=== PATIENT | female | born 1980 | race African-American/Black ===

== ENCOUNTER 2017-02-17 08:54 | Emergency (ER) | payer MEDICAID ==
[~2017-02-17] VITALS: Ht 149.9 cm; Wt 87.0 kg
[~2017-02-17 08:54] MED LIST: ENAL20TA PO; HYDR12.529 PO; LEVO50TA8 PO; METF500T4 PO
[2017-02-17] MEDS ORDERED: SODIUM BICARBONATE 4% (2.4MEQ) 5ML VIAL IV ONE (12:40)
[2017-02-17] MEDS ORDERED: LIDOCAINE HCL 1% 20ML VIAL (Pyxis) INJ ONE (12:40)
[2017-02-17 13:05] LABS: INR 1.1; PARTIAL THROMBOPLASTIN TIME 27.7 sec (24.0-34.0); PROTHROMBIN TIME 11.4 sec
[2017-02-17 13:24] LABS: BASOPHILS % 0.7 % (0.0-2.0); DIFFERENTIAL COMMENT 0; EOSINOPHILS % 2.1 % (0.0-5.0); HEMATOCRIT. 45.6 % (36.0-48.0); HEMOGLOBIN. 14.1 g/dL (12.0-16.0); LYMPHOCYTES % 20.4 % (20.0-50.0); MEAN CORPUSCULAR HEMOGLOBIN 25.7 pg (28.0-32.0); MEAN CORPUSCULAR VOLUME 82.9 fL (81.0-99.0); MEAN PLATELET VOLUME 10.5 fl (7.4-10.4); MONOCYTES % 6.6 % (2.0-8.0); NEUTROPHILS % 70.2 % (40.0-76.0); PLATELET 170 x1000/uL (130-400); RED CELL DISTRIBUTION WIDTH 16.4 % (11.6-14.6); WHITE BLOOD COUNT 6.1 x1000/uL (4.5-11.0)
[2017-02-17 14:47] VITALS: BP 125/68
[2017-02-24] MEDS ORDERED: IBUP-1509 PO (10:17)
== END 2017-02-17 14:58 | disposition home or self-care (01) ==
LOC: ER 08:54
DX: R18.8 Other ascites (principal); I10 Essential (primary) hypertension; E11.9 Type 2 diabetes mellitus without complications; E03.9 Hypothyroidism, unspecified; Z85.43 Personal history of malignant neoplasm of ovary
CPT/HCPCS: 36415; 49083; 81025; 85025; 85610; 85730; 99285; J3490; Z7610

== ENCOUNTER 2017-03-13 10:56 | Day surgery (SDC) | payer MEDICAID ==
[~2017-03-13] VITALS: Ht 149.9 cm; Wt 86.2 kg
[~2017-03-13 10:56] MED LIST changes: +IBUP-1509 PO
[2017-03-13] MEDS ORDERED: LACTATED RINGERS 1,000 ML IV SCH (11:00)
[2017-03-13 11:44] LABS: BASOPHILS % 0.6 % (0.0-2.0); HEMATOCRIT. 47.4 % (36.0-48.0); HEMOGLOBIN. 14.6 g/dL (12.0-16.0); LYMPHOCYTES % 13.8 % (20.0-50.0); MEAN CORPUSCULAR HEMOGLOBIN 25.6 pg (28.0-32.0); MEAN CORPUSCULAR VOLUME 82.9 fL (81.0-99.0); MEAN PLATELET VOLUME 10.6 fl (7.4-10.4); MONOCYTES % 6.6 % (2.0-8.0); PLATELET 216 x1000/uL (130-400); RED BLOOD CELL COUNT 5.71 mill/uL (4.2-5.4); RED CELL DISTRIBUTION WIDTH 15.9 % (11.6-14.6)
[2017-03-13 11:46] LABS: CHLORIDE 102 mEq/L (98-107)
[2017-03-13 11:56] LABS: CARBON DIOXIDE 37 mEq/L (21-32)
[2017-03-13 12:00] LABS: INR 1.1; PROTHROMBIN TIME 11.4 sec
[2017-03-13] MEDS ORDERED: SODIUM CHLORIDE 0.9% 1,000 ML IV SCH (12:15)
[2017-03-13] MEDS ORDERED: PROPOFOL 200MG/20ML VIAL IV ONE (12:42)
[2017-03-13] MEDS ORDERED: LIDOCAINE HCL 1% 20ML VIAL (Pyxis) INJ ONE (12:42)
[2017-03-13] MEDS ORDERED: OXYC-100 PO (12:45)
[2017-03-13] MEDS ORDERED: ATOR10TA69 PO (12:46)
[2017-03-13] MEDS ORDERED: MEPERIDINE HCL/PF 25MG/ML CPJ IV PRN (13:00)
[2017-03-13] MEDS ORDERED: LABETALOL HCL 20MG/4ML CARPUJECT IV PRN (13:00)
[2017-03-13] MEDS ORDERED: HYDROMORPHONE HCL/PF 2MG/ML CPJ IV PRN (13:00)
[2017-03-13] MEDS ORDERED: ONDANSETRON HCL 4MG/2ML VIAL IV PRN (13:00)
[2017-03-23] MEDS ORDERED: METO-293 PO (10:18)
== END 2017-03-13 14:55 | disposition home or self-care (01) ==
LOC: OR 10:56
PROVIDERS: ATTEND Internal Medicine Gastroenterology
DX: K29.50 Unspecified chronic gastritis without bleeding (principal); C56.9 Malignant neoplasm of unspecified ovary; E11.9 Type 2 diabetes mellitus without complications; E03.9 Hypothyroidism, unspecified; J44.9 Chronic obstructive pulmonary disease, unspecified; I12.9 Hypertensive chronic kidney disease with stage 1 through stage 4 chronic kidney disease, or unspecified chronic kidney disease; M19.90 Unspecified osteoarthritis, unspecified site; N18.9 Chronic kidney disease, unspecified; E66.01 Morbid (severe) obesity due to excess calories
CPT/HCPCS: 36415; 43239; 80053; 85025; 85610; 85730; 88305; 88312; 88313; 93005; J3490; J7030; J2704

== ENCOUNTER 2017-03-30 10:43 | Emergency (ER) | payer MEDICAID ==
[~2017-03-30] VITALS: Ht 149.9 cm; Wt 87.0 kg
[~2017-03-30 10:43] MED LIST changes: +ATOR10TA69 PO; +LIDOCAINE HCL 1% 20ML VIAL (Pyxis) INJ ONE; +METO-293 PO; +OXYC-100 PO; +SODIUM BICARBONATE 8.4% 1 MEQ/ML 50ML SYR IV ONE
[2017-03-30] MEDS ORDERED: ONDANSETRON HCL 4MG/2ML VIAL IV STA (11:26)
[2017-03-30 11:40] LABS: BASOPHILS % 0.9 % (0.0-2.0); EOSINOPHILS % 3.6 % (0.0-5.0); HEMATOCRIT. 45.8 % (36.0-48.0); HEMOGLOBIN. 14.4 g/dL (12.0-16.0); LYMPHOCYTES % 13.7 % (20.0-50.0); MEAN CORPUSCULAR HEMOGLOBIN 25.7 pg (28.0-32.0); MEAN CORPUSCULAR VOLUME 81.7 fL (81.0-99.0); MEAN PLATELET VOLUME 10.9 fl (7.4-10.4); NEUTROPHILS % 79.8 % (40.0-76.0); PLATELET 136 x1000/uL (130-400); RED BLOOD CELL COUNT 5.61 mill/uL (4.2-5.4); RED CELL DISTRIBUTION WIDTH 14.8 % (11.6-14.6)
[2017-03-30 11:49] LABS: INR 1.1; PROTHROMBIN TIME 11.9 sec
[2017-03-30 11:55] LABS: CARBON DIOXIDE 38 mEq/L (21-32); CHLORIDE 92 mEq/L (98-107)
[2017-03-30 14:23] VITALS: BP 121/87
== END 2017-03-30 15:26 | disposition home or self-care (01) ==
LOC: ER 11:30
DX: R18.8 Other ascites (principal); R11.2 Nausea with vomiting, unspecified; E05.90 Thyrotoxicosis, unspecified without thyrotoxic crisis or storm; J44.9 Chronic obstructive pulmonary disease, unspecified; I10 Essential (primary) hypertension; E11.9 Type 2 diabetes mellitus without complications
CPT/HCPCS: 36415; 49083; 80053; 85025; 85610; 96374; 99285; J2405; J3490; Z7610

== ENCOUNTER 2017-05-02 15:25 | Inpatient (IN) | payer MEDICAID ==
[~2017-05-02] VITALS: Ht 149.9 cm; Wt 78.0 kg
[2017-05-02 04:00] VITALS: BP 88/65
[~2017-05-02 15:25] MED LIST changes: -ENAL20TA PO; -IBUP-1509 PO; -LIDOCAINE HCL 1% 20ML VIAL (Pyxis) INJ ONE; -METF500T4 PO; -OXYC-100 PO; -SODIUM BICARBONATE 8.4% 1 MEQ/ML 50ML SYR IV ONE
[2017-05-02] MEDS ORDERED: SODIUM CHLORIDE 0.9% 1,000 ML IV ONE ×2 (15:55→19:06)
[2017-05-02 16:30] LABS: BASOPHILS % 0.4 % (0.0-2.0); EOSINOPHILS % 0.2 % (0.0-5.0); HEMATOCRIT. 35.6 % (36.0-48.0); HEMOGLOBIN. 11.5 g/dL (12.0-16.0); LYMPHOCYTES % 26.3 % (20.0-50.0); MEAN CORPUSCULAR HEMOGLOBIN 26.2 pg (28.0-32.0); MEAN CORPUSCULAR VOLUME 80.8 fL (81.0-99.0); MEAN PLATELET VOLUME 9.5 fl (7.4-10.4); MONOCYTES % 13.7 % (2.0-8.0); NEUTROPHILS % 59.4 % (40.0-76.0); PLATELET 283 x1000/uL (130-400); RED BLOOD CELL COUNT 4.41 mill/uL (4.2-5.4); RED CELL DISTRIBUTION WIDTH 15.6 % (11.6-14.6)
[2017-05-02 16:36] LABS: INR 1.1
[2017-05-02 16:46] LABS: CARBON DIOXIDE 35 mEq/L (21-32); CHLORIDE 88 mEq/L (98-107); TROPONIN I < 0.02 ng/mL (0.00-0.04)
[2017-05-02] MEDS ORDERED: SODIUM CHLORIDE 0.9% 1000ML BAG (SEPSIS BOLUS) IV ONE (17:00)
[2017-05-02] MEDS ORDERED: PIPERACILLIN/TAZ 3.375G PREMIX 50 ML IV NR (17:00)
[2017-05-02 17:14] LABS: HCG SCREEN NEGATIVE
[2017-05-02] MEDS ORDERED: SODIUM CHLORIDE 0.9% 1,040 ML IV SCH (17:15)
[2017-05-02] MEDS ORDERED: ONDANSETRON HCL 4MG/2ML VIAL IV ONE (17:45)
[2017-05-02] MEDS ORDERED: MORPHINE SULFATE 4 MG/ML CPJ (NOT FOR IM USE) IV ONE (17:45)
[2017-05-02] MEDS ORDERED: SODIUM CHLORIDE 0.9% 1,000 ML IV NR (23:00)
[2017-05-02] MEDS ORDERED: ALBUMIN HUMAN 25GM/100ML (25%) IV NR (23:15)
[2017-05-03] VITALS: BP 96/72
[2017-05-03] MEDS ORDERED: IPRATROPIUM/ALBUTEROL 0.5-3(2.5)MG/3ML NEB INH PRN
[2017-05-03] MEDS ORDERED: OMEP20CA10 PO (00:17)
[2017-05-03] MEDS: SODIUM CHLORIDE 0.9% 1,000 ML IV SCH ×3 (00:49→15:30)
[2017-05-03] MEDS ORDERED: VANCOMYCIN 1250MG in DEXTROSE 5% WATER 250ML IV NR (02:00)
[2017-05-03] MEDS: PIPERACILLIN/TAZ 3.375G PREMIX 50 ML IV SCH ×3 (02:32→17:41)
[2017-05-03 06:02] LABS: HEMATOCRIT. 26.9 % (36.0-48.0); HEMOGLOBIN. 8.6 g/dL (12.0-16.0); MEAN CORPUSCULAR VOLUME 81.8 fL (81.0-99.0); MEAN PLATELET VOLUME 9.1 fl (7.4-10.4); PLATELET 185 x1000/uL (130-400); RED BLOOD CELL COUNT 3.29 mill/uL (4.2-5.4); RED CELL DISTRIBUTION WIDTH 15.9 % (11.6-14.6)
[2017-05-03 08:00] VITALS: BP 93/63
[2017-05-03] MEDS: ENOXAPARIN 40MG/0.4ML SYR SUBCUT SCH (08:31)
[2017-05-03 11:18] LABS: PLATELET ESTIMATE NORMAL
[2017-05-03 12:00] VITALS: BP 90/60
[2017-05-03] MEDS: ONDANSETRON HCL 4MG/2ML VIAL IV PRN (13:45)
[2017-05-03 16:00] VITALS: BP 90/62
[2017-05-03 20:00] VITALS: BP 106/75
[2017-05-03] MEDS: ATORVASTATIN CALCIUM 10MG TABLET PO SCH (21:00)
[2017-05-03] MEDS: VANCOMYCIN 750 MG PREMIX 150 ML IV SCH (22:19)
[2017-05-04] VITALS: BP 98/60
[2017-05-04] MEDS: PIPERACILLIN/TAZ 3.375G PREMIX 50 ML IV SCH ×3 (03:27→17:28)
[2017-05-04] MEDS: SODIUM CHLORIDE 0.9% 1,000 ML IV SCH ×2 (03:27→08:29)
[2017-05-04 04:00] VITALS: BP 88/58
[2017-05-04 07:22] LABS: BASOPHILS % 0.3 % (0.0-2.0); EOSINOPHILS % 0.4 % (0.0-5.0); HEMATOCRIT. 30.5 % (36.0-48.0); HEMOGLOBIN. 9.8 g/dL (12.0-16.0); LYMPHOCYTES % 18.3 % (20.0-50.0); MEAN CORPUSCULAR HEMOGLOBIN 26.7 pg (28.0-32.0); MEAN CORPUSCULAR VOLUME 82.7 fL (81.0-99.0); MEAN PLATELET VOLUME 9.3 fl (7.4-10.4); MONOCYTES % 13.5 % (2.0-8.0); NEUTROPHILS % 67.5 % (40.0-76.0); PLATELET 205 x1000/uL (130-400); RED BLOOD CELL COUNT 3.69 mill/uL (4.2-5.4); RED CELL DISTRIBUTION WIDTH 16.3 % (11.6-14.6)
[2017-05-04 07:47] LABS: CARBON DIOXIDE 30 mEq/L (21-32); CHLORIDE 101 mEq/L (98-107)
[2017-05-04 08:30] VITALS: BP 90/66
[2017-05-04 09:04] LABS: GLUCOSE URINE NEGATIVE (NEGATIVE); KETONES URINE NEGATIVE (NEGATIVE); LEUKOCYTE ESTERASE URINE TRACE (NEGATIVE); NITRITE URINE NEGATIVE (NEGATIVE); OCCULT BLOOD URINE NEGATIVE (NEGATIVE); PROTEIN URINE TRACE (NEGATIVE); SPECIFIC GRAVITY URINE 1.021 (1.005-1.030); UROBILINOGEN URINE 0.2 E.U./dL (0.2-1.0)
[2017-05-04 09:12] LABS: CLARITY URINE CLOUDY (CLEAR); COLOR URINE DARK YELLOW (YELLOW)
[2017-05-04 09:27] LABS: *AMPHETAMINES SCREEN URINE NEGATIVE (NEGATIVE); *BARBITURATES SCREEN URINE NEGATIVE (NEGATIVE); *BENZODIAZEPINES SCREEN URINE NEGATIVE (NEGATIVE); *COCAINE SCREEN URINE NEGATIVE (NEGATIVE); CANNABINOID URINE SCREEN NEGATIVE (NEGATIVE); METHADONE URINE SCREEN NEGATIVE (NEGATIVE); PHENCYCLIDINE URINE SCREEN NEGATIVE (NEGATIVE)
[2017-05-04 09:44] LABS: OPIATES URINE SCREEN PRESUMTIVE POSITIVE (NEGATIVE)
[2017-05-04] MEDS: LEVOTHYROXINE SODIUM 50MCG TABLET PO SCH (10:15)
[2017-05-04] MEDS ORDERED: DEXTROSE 50% WATER 50ML SYRINGE IV PRN (10:15)
[2017-05-04] MEDS: OMEPRAZOLE 20MG CAPSULE EXTENDED RELEASE PO SCH (10:15)
[2017-05-04] MEDS: ONDANSETRON HCL 4MG/2ML VIAL IV PRN (11:37)
[2017-05-04] MEDS: BLOOD SUGAR DIAGNOSTIC STRIP TEST SCH ×3 (11:41→21:56)
[2017-05-04] MEDS: INSULIN LISPRO 100 UNITS/ML SUBCUT SCH ×3 (11:42→21:00)
[2017-05-04 12:00] VITALS: BP 96/71
[2017-05-04] MEDS ORDERED: ALBUMIN HUMAN 25GM/100ML (25%) IV NR (12:00)
[2017-05-04 16:00] VITALS: BP 155/93
[2017-05-04] MEDS: VANCOMYCIN 750 MG PREMIX 150 ML IV SCH (17:28)
[2017-05-04 20:00] VITALS: BP 92/60
[2017-05-04] MEDS: ATORVASTATIN CALCIUM 10MG TABLET PO SCH (21:00)
[2017-05-04] MEDS: ACETAMINOPHEN 325MG TABLET PO PRN (22:37)
[2017-05-05] VITALS: BP 91/65
[2017-05-05] MEDS: PIPERACILLIN/TAZ 3.375G PREMIX 50 ML IV SCH ×4 (01:55→18:00)
[2017-05-05 04:00] VITALS: BP 94/51
[2017-05-05] MEDS: LEVOTHYROXINE SODIUM 50MCG TABLET PO SCH (06:12)
[2017-05-05] MEDS: BLOOD SUGAR DIAGNOSTIC STRIP TEST SCH ×4 (06:12→20:43)
[2017-05-05] MEDS: OMEPRAZOLE 20MG CAPSULE EXTENDED RELEASE PO SCH (06:12)
[2017-05-05] MEDS: INSULIN LISPRO 100 UNITS/ML SUBCUT SCH ×4 (06:28→20:43)
[2017-05-05 06:31] LABS: BASOPHILS % 0.5 % (0.0-2.0); EOSINOPHILS % 0.4 % (0.0-5.0); HEMATOCRIT. 27.5 % (36.0-48.0); HEMOGLOBIN. 8.8 g/dL (12.0-16.0); LYMPHOCYTES % 18.7 % (20.0-50.0); MEAN CORPUSCULAR HEMOGLOBIN 26.4 pg (28.0-32.0); MEAN CORPUSCULAR VOLUME 82.8 fL (81.0-99.0); MEAN PLATELET VOLUME 9.4 fl (7.4-10.4); NEUTROPHILS % 67.4 % (40.0-76.0); PLATELET 197 x1000/uL (130-400); RED BLOOD CELL COUNT 3.32 mill/uL (4.2-5.4); RED CELL DISTRIBUTION WIDTH 16.2 % (11.6-14.6)
[2017-05-05 07:42] LABS: CARBON DIOXIDE 30 mEq/L (21-32); CHLORIDE 101 mEq/L (98-107)
[2017-05-05 08:00] VITALS: BP 94/59
[2017-05-05] MEDS: VANCOMYCIN 750 MG PREMIX 150 ML IV SCH ×2 (10:00→12:00)
[2017-05-05 10:55] LABS: FOLIC ACID (FOLATE) SERUM 9.8 ng/mL (>5.38)
[2017-05-05 12:00] VITALS: BP 90/66
[2017-05-05 16:00] VITALS: BP 90/62
[2017-05-05 20:00] VITALS: BP 123/80
[2017-05-05] MEDS: ATORVASTATIN CALCIUM 10MG TABLET PO SCH (20:43)
[2017-05-06] VITALS (7 sets, daily range): BP systolic 72–108; BP diastolic 43–74
[2017-05-06] MEDS: OMEPRAZOLE 20MG CAPSULE EXTENDED RELEASE PO SCH (06:45)
[2017-05-06] MEDS: LEVOTHYROXINE SODIUM 50MCG TABLET PO SCH (06:45)
[2017-05-06] MEDS: BLOOD SUGAR DIAGNOSTIC STRIP TEST SCH ×4 (06:48→21:26)
[2017-05-06] MEDS: INSULIN LISPRO 100 UNITS/ML SUBCUT SCH ×4 (06:48→21:00)
[2017-05-06 07:12] LABS: CARBON DIOXIDE 33 mEq/L (21-32); CHLORIDE 101 mEq/L (98-107)
[2017-05-06 08:07] LABS: BASOPHILS % 0.4 % (0.0-2.0); EOSINOPHILS % 0.7 % (0.0-5.0); HEMATOCRIT. 30.3 % (36.0-48.0); HEMOGLOBIN. 9.5 g/dL (12.0-16.0); LYMPHOCYTES % 17.7 % (20.0-50.0); MEAN CORPUSCULAR VOLUME 82.8 fL (81.0-99.0); MEAN PLATELET VOLUME 9.6 fl (7.4-10.4); MONOCYTES % 10.4 % (2.0-8.0); NEUTROPHILS % 70.8 % (40.0-76.0); PLATELET 202 x1000/uL (130-400); RED BLOOD CELL COUNT 3.65 mill/uL (4.2-5.4); RED CELL DISTRIBUTION WIDTH 15.8 % (11.6-14.6)
[2017-05-06] MEDS: LEVOFLOXACIN 500MG TABLET PO SCH (11:00)
[2017-05-06] MEDS: ACETAMINOPHEN 325MG TABLET PO PRN (11:48)
[2017-05-06 13:09] LABS: CANCER ANTIGEN 125 113.6 U/mL (0.0-38.1)
[2017-05-06] MEDS ORDERED: SODIUM CHLORIDE 0.9% 500 ML IV ONE (22:15)
[2017-05-06] MEDS ORDERED: ALBUMIN HUMAN 25GM/100ML (25%) IV NR (23:00)
[2017-05-07] VITALS: BP 84/65
[2017-05-07 04:00] VITALS: BP 81/57
[2017-05-07] MEDS: ACETAMINOPHEN 325MG TABLET PO PRN (05:01)
[2017-05-07] MEDS: BLOOD SUGAR DIAGNOSTIC STRIP TEST SCH ×2 (06:34→13:19)
[2017-05-07] MEDS: INSULIN LISPRO 100 UNITS/ML SUBCUT SCH ×2 (06:35→13:19)
[2017-05-07 08:00] VITALS: BP 90/65
[2017-05-07] MEDS: LEVOFLOXACIN 500MG TABLET PO SCH (10:38)
[2017-05-07] MEDS: OMEPRAZOLE 20MG CAPSULE EXTENDED RELEASE PO SCH (10:39)
[2017-05-07] MEDS: MIDODRINE HCL 2.5MG TABLET PO SCH ×2 (10:39→13:25)
[2017-05-07] MEDS: LEVOTHYROXINE SODIUM 50MCG TABLET PO SCH (10:39)
[2017-05-07] MEDS: ENOXAPARIN 40MG/0.4ML SYR SUBCUT SCH (10:47)
[2017-05-07 12:00] VITALS: BP 92/74
[2017-05-09 15:56] LABS: ERYTHROPOIETIN SERUM 16.9 mIU/mL (2.6-18.5)
== END 2017-05-07 14:32 | disposition home or self-care (01) | DRG 136 ==
LOC: ER 18:01 → 5WST 18:38 → EDBEDREQSVC 18:40 → EDBEDREQ 18:40 → ENRESERV 22:35
PROVIDERS: ADMIT Internal Medicine; ATTEND Internal Medicine
PROC: 0W9G3ZZ Drainage of Peritoneal Cavity, Percutaneous Approach (ICD-10-PCS; principal; 2017-05-04)
PROC: 0W993ZZ Drainage of Right Pleural Cavity, Percutaneous Approach (ICD-10-PCS; 2017-05-04)
DX: C78.2 Secondary malignant neoplasm of pleura (principal); J96.20 Acute and chronic respiratory failure, unspecified whether with hypoxia or hypercapnia; E43 Unspecified severe protein-calorie malnutrition; C80.0 Disseminated malignant neoplasm, unspecified; N17.9 Acute kidney failure, unspecified; R18.8 Other ascites; J91.0 Malignant pleural effusion; C56.9 Malignant neoplasm of unspecified ovary; R65.10 Systemic inflammatory response syndrome (SIRS) of non-infectious origin without acute organ dysfunction; I95.9 Hypotension, unspecified; N39.0 Urinary tract infection, site not specified; E11.9 Type 2 diabetes mellitus without complications; I10 Essential (primary) hypertension; E03.9 Hypothyroidism, unspecified; K59.00 Constipation, unspecified; E78.5 Hyperlipidemia, unspecified; D63.8 Anemia in other chronic diseases classified elsewhere; Z79.899 Other long term (current) drug therapy; Z99.81 Dependence on supplemental oxygen; Z86.711 Personal history of pulmonary embolism; Z92.21 Personal history of antineoplastic chemotherapy; Z68.34 Body mass index [BMI] 34.0-34.9, adult
CPT/HCPCS: 32555; 36415; 49083; 71010; 74176; 76604; 76705; 80048; 80053; 80202; 80305; 81001; 82270; 82607; 82668; 82728; 82746; 82962; 83540; 83550; 83605; 83690; 83880; 84443; 84484; 84703; 85025; 85044; 85362; 85610; 85651; 86140; 86304; 87040; 87070; 87086; 87205; 93005; 96361; 96365; 96375; 97116; 97163; 97530; 99291; J1650; J2270; J2405; J2543; J3370; J7030; J7040; J7050; J7060; P9047

== ENCOUNTER 2017-05-07 14:54 | Emergency (ER) | payer MEDICAID ==
[~2017-05-07] VITALS: Ht 149.9 cm; Wt 68.0 kg
[~2017-05-07 14:54] MED LIST changes: +LIDOCAINE HCL/PF 1% 2ML VIAL ONE; +OMEP20CA10 PO
[2017-05-07 15:27] LABS: BG BASE EXCESS 5.7 mmol/L (-2.0-2.0); BG CARBOXYHEMOGLOBIN 0.3 % (0.5-1.5); BG DEOXYHEMOGLOBIN 1.1 % (0.0-5.0); BG METHEMOGLOBIN 0.3 % (0.0-1.5); BG OXYGEN SATURATION 98.9 % (92.0-98.5); BG OXYHEMOGLOBIN 98.3 % (94.0-97.0); BG PCO2 42.2 mmHg (35.0-45.0); BG PH 7.469 (7.350-7.450); BG PO2 190.6 mmHg (75.0-100.0); BG SAMPLE SITE RIGHT RADIAL; BG TOTAL HEMOGLOBIN 11.9 g/dL (12.0-18.0); BG VENT MODE NASAL CANNULA
[2017-05-07 16:04] LABS: BASOPHILS % 0.5 % (0.0-2.0); EOSINOPHILS % 0.5 % (0.0-5.0); HEMATOCRIT. 32.4 % (36.0-48.0); HEMOGLOBIN. 10.2 g/dL (12.0-16.0); MEAN CORPUSCULAR HEMOGLOBIN 26.1 pg (28.0-32.0); MEAN PLATELET VOLUME 9.3 fl (7.4-10.4); MONOCYTES % 9.2 % (2.0-8.0); NEUTROPHILS % 74.8 % (40.0-76.0); PLATELET 217 x1000/uL (130-400); RED BLOOD CELL COUNT 3.91 mill/uL (4.2-5.4); RED CELL DISTRIBUTION WIDTH 16.7 % (11.6-14.6)
[2017-05-07 16:07] LABS: INR 1.3
[2017-05-07 17:20] VITALS: BP 100/65
== END 2017-05-07 17:55 | disposition home or self-care (01) ==
LOC: ER 15:02
DX: R53.1 Weakness (principal); I10 Essential (primary) hypertension; E11.9 Type 2 diabetes mellitus without complications; Z86.711 Personal history of pulmonary embolism; Z85.43 Personal history of malignant neoplasm of ovary
CPT/HCPCS: 36415; 36600; 82375; 82805; 85025; 85610; 93005; 99285; J3490; Z7610

== ENCOUNTER 2017-05-26 08:13 | Emergency (ER) | payer MEDICAID ==
[~2017-05-26] VITALS: Ht 162.6 cm; Wt 75.0 kg
[~2017-05-26 08:13] MED LIST changes: -LIDOCAINE HCL/PF 1% 2ML VIAL ONE
[2017-05-26] MEDS ORDERED: ONDANSETRON HCL 4MG/2ML VIAL IV STA (08:33)
[2017-05-26] MEDS ORDERED: SODIUM CHLORIDE 0.9% 1,000 ML IV ONE (08:33)
[2017-05-26] MEDS ORDERED: MORPHINE SULFATE 4 MG/ML CPJ (NOT FOR IM USE) IV STA (08:33)
[2017-05-26 09:20] LABS: BASOPHILS % 0.9 % (0.0-2.0); EOSINOPHILS % 4.6 % (0.0-5.0); HEMATOCRIT. 25.7 % (36.0-48.0); HEMOGLOBIN. 8.2 g/dL (12.0-16.0); LYMPHOCYTES % 22.6 % (20.0-50.0); MEAN CORPUSCULAR HEMOGLOBIN 26.6 pg (28.0-32.0); MEAN CORPUSCULAR VOLUME 83.1 fL (81.0-99.0); MEAN PLATELET VOLUME 10.7 fl (7.4-10.4); MONOCYTES % 1.6 % (2.0-8.0); NEUTROPHILS % 70.3 % (40.0-76.0); PLATELET 132 x1000/uL (130-400); RED BLOOD CELL COUNT 3.09 mill/uL (4.2-5.4); RED CELL DISTRIBUTION WIDTH 16.5 % (11.6-14.6)
[2017-05-26 09:29] LABS: INR 1.1; PROTHROMBIN TIME 11.4 sec
[2017-05-26 09:38] LABS: CARBON DIOXIDE 37 mEq/L (21-32); CHLORIDE 92 mEq/L (98-107); TROPONIN I < 0.02 ng/mL (0.00-0.04)
[2017-05-26 09:57] LABS: CLARITY URINE TURBID (CLEAR); COLOR URINE DARK YELLOW (YELLOW); GLUCOSE URINE NEGATIVE (NEGATIVE); KETONES URINE TRACE (NEGATIVE); LEUKOCYTE ESTERASE URINE 1+ (NEGATIVE); NITRITE URINE NEGATIVE (NEGATIVE); OCCULT BLOOD URINE TRACE (NEGATIVE); PH URINE 5.5 (4.5-8.0); PROTEIN URINE 1+ (NEGATIVE)
[2017-05-26] MEDS ORDERED: SODIUM CHLORIDE 0.9% 10ML VIAL ONE (13:15)
[2017-05-26] MEDS ORDERED: IOHEXOL-350 100 ML BOTTLE ONE (13:15)
[2017-05-26 17:06] VITALS: BP 110/72
== END 2017-05-26 17:53 | disposition home or self-care (01) ==
LOC: ER 08:17 → CANBEDREQ 16:10 → ER 17:53
DX: C56.9 Malignant neoplasm of unspecified ovary (principal); R18.8 Other ascites; E11.9 Type 2 diabetes mellitus without complications; I10 Essential (primary) hypertension; Q90.9 Down syndrome, unspecified; Z88.1 Allergy status to other antibiotic agents; Z92.21 Personal history of antineoplastic chemotherapy
CPT/HCPCS: 36415; 71010; 74177; 80053; 81001; 81025; 83605; 83690; 83880; 84484; 85025; 85610; 93005; 96361; 96374; 96375; 99285; A4216; J2270; J2405; J7030; J7040; Q9967; Z7610

== ENCOUNTER 2017-05-30 21:04 | Inpatient (IN) | payer MEDICAID ==
[~2017-05-30] VITALS: Ht 149.9 cm; Wt 64.4 kg
[2017-05-30] MEDS ORDERED: SODIUM CHLORIDE 0.9% 1,000 ML IV ONE (22:11)
[2017-05-30 22:40] LABS: CLARITY URINE CLOUDY (CLEAR); COLOR URINE DARK YELLOW (YELLOW); GLUCOSE URINE NEGATIVE (NEGATIVE); KETONES URINE TRACE (NEGATIVE); LEUKOCYTE ESTERASE URINE TRACE (NEGATIVE); NITRITE URINE NEGATIVE (NEGATIVE); OCCULT BLOOD URINE NEGATIVE (NEGATIVE); PROTEIN URINE 1+ (NEGATIVE); SPECIFIC GRAVITY URINE 1.028 (1.005-1.030)
[2017-05-30 23:13] LABS: HEMOGLOBIN. 8.4 g/dL (12.0-16.0); MEAN CORPUSCULAR HEMOGLOBIN 26.6 pg (28.0-32.0); MEAN PLATELET VOLUME 9.6 fl (7.4-10.4); PLATELET 190 x1000/uL (130-400); RED BLOOD CELL COUNT 3.17 mill/uL (4.2-5.4); RED CELL DISTRIBUTION WIDTH 17.9 % (11.6-14.6)
[2017-05-30 23:17] LABS: INR 1.1; PROTHROMBIN TIME 11.8 sec
[2017-05-30 23:26] LABS: CARBON DIOXIDE 30 mEq/L (21-32); CHLORIDE 92 mEq/L (98-107)
[2017-05-30] MEDS ORDERED: SULFAMETHOXAZOLE/TRIMETHOPRIM 800/160MG TABLET PO ONE (23:45)
[2017-05-30 23:47] LABS: BG BASE EXCESS 1.2 mmol/L (-2.0-2.0); BG CARBOXYHEMOGLOBIN 0.3 % (0.5-1.5); BG DEOXYHEMOGLOBIN 5.4 % (0.0-5.0); BG FRACTION INSPIRED OXYGEN 21; BG HCO3 ACT 24.7 mmol/L (22.0-26.0); BG METHEMOGLOBIN 0.4 % (0.0-1.5); BG OXYGEN SATURATION 94.6 % (92.0-98.5); BG OXYHEMOGLOBIN 93.9 % (94.0-97.0); BG PCO2 34.5 mmHg (35.0-45.0); BG PH 7.473 (7.350-7.450); BG PO2 72.6 mmHg (75.0-100.0); BG SAMPLE SITE LEFT RADIAL; BG TOTAL HEMOGLOBIN 9.1 g/dL (12.0-18.0); BG VENT MODE ROOM AIR
[2017-05-31 03:48] LABS: ATYPICAL LYMPHOCYTES 2; PLATELET ESTIMATE NORMAL
[2017-05-31] MEDS ORDERED: DEXTROSE 50% WATER 50ML SYRINGE IV ONE (08:11)
[2017-05-31 10:00] VITALS: BP 115/84
[2017-05-31 10:37] VITALS: BP 134/90
[2017-05-31 12:00] VITALS: BP 102/69
[2017-05-31] MEDS: SODIUM CHLORIDE 0.9% 1,000 ML IV SCH (12:40)
[2017-05-31] MEDS ORDERED: LEVOFLOXACIN 500MG PREMIX 100 ML IV SCH (12:45)
[2017-05-31] MEDS ORDERED: IPRATROPIUM/ALBUTEROL 0.5-3(2.5)MG/3ML NEB INH PRN (12:45)
[2017-05-31] MEDS ORDERED: ENOXAPARIN 40MG/0.4ML SYR SUBCUT SCH (13:00)
[2017-05-31] MEDS: LEVOTHYROXINE SODIUM 50MCG TABLET PO SCH (14:38)
[2017-05-31] MEDS: SULFAMETHOXAZOLE/TRIMETHOPRIM 800/160MG TABLET PO SCH ×2 (14:38→23:15)
[2017-05-31] MEDS: OMEPRAZOLE 20MG CAPSULE EXTENDED RELEASE PO SCH (14:39)
[2017-05-31 16:00] VITALS: BP 102/80
[2017-05-31] MEDS: BLOOD SUGAR DIAGNOSTIC STRIP TEST SCH ×2 (17:40→20:51)
[2017-05-31] MEDS ORDERED: DEXTROSE 50% WATER 50ML SYRINGE IV PRN (17:45)
[2017-05-31] MEDS ORDERED: POTASSIUM CHLORIDE 20MEQ TABLET SR PO NR (19:45)
[2017-05-31 20:00] VITALS: BP 99/71
[2017-05-31] MEDS: ATORVASTATIN CALCIUM 10MG TABLET PO SCH (20:51)
[2017-05-31] MEDS: ONDANSETRON HCL 4MG/2ML VIAL IV PRN (21:13)
[2017-05-31] MEDS ORDERED: FILGRASTIM 300 MCG/ML VIAL SUBCUT NR (22:00)
[2017-06-01] VITALS: BP 108/73
[2017-06-01] MEDS: SODIUM CHLORIDE 0.9% 1,000 ML IV SCH ×2 (03:43→15:20)
[2017-06-01 04:00] VITALS: BP 108/71
[2017-06-01 06:30] LABS: HEMATOCRIT. 25.6 % (36.0-48.0); HEMOGLOBIN. 8.2 g/dL (12.0-16.0); MEAN CORPUSCULAR VOLUME 84.7 fL (81.0-99.0); MEAN PLATELET VOLUME 9.3 fl (7.4-10.4); PLATELET 188 x1000/uL (130-400); RED BLOOD CELL COUNT 3.03 mill/uL (4.2-5.4); RED CELL DISTRIBUTION WIDTH 18.2 % (11.6-14.6)
[2017-06-01] MEDS: BLOOD SUGAR DIAGNOSTIC STRIP TEST SCH ×4 (06:45→20:19)
[2017-06-01 07:26] LABS: CARBON DIOXIDE 31 mEq/L (21-32); CHLORIDE 97 mEq/L (98-107)
[2017-06-01 08:00] VITALS: BP 97/66
[2017-06-01] MEDS: LEVOTHYROXINE SODIUM 50MCG TABLET PO SCH (08:31)
[2017-06-01] MEDS: SULFAMETHOXAZOLE/TRIMETHOPRIM 800/160MG TABLET PO SCH ×2 (09:56→20:19)
[2017-06-01] MEDS: OMEPRAZOLE 20MG CAPSULE EXTENDED RELEASE PO SCH (09:56)
[2017-06-01 10:26] LABS: PLATELET ESTIMATE NORMAL
[2017-06-01] MEDS: ACETAMINOPHEN 325MG TABLET PO PRN (11:08)
[2017-06-01] MEDS: ONDANSETRON HCL 4MG/2ML VIAL IV PRN (11:13)
[2017-06-01 12:00] VITALS: BP 93/64
[2017-06-01 16:00] VITALS: BP 87/66
[2017-06-01 20:00] VITALS: BP 97/60
[2017-06-01] MEDS: ATORVASTATIN CALCIUM 10MG TABLET PO SCH (20:19)
[2017-06-02] VITALS: BP_SYST 77; BP_SYST 91; BP_DIAS 44; BP_DIAS 62
[2017-06-02] MEDS: ONDANSETRON HCL 4MG/2ML VIAL IV PRN ×3 (00:34→22:51)
[2017-06-02 04:00] VITALS: BP 89/64
[2017-06-02] MEDS: SODIUM CHLORIDE 0.9% 1,000 ML IV SCH (06:15)
[2017-06-02 06:39] LABS: CARBON DIOXIDE 29 mEq/L (21-32); CHLORIDE 100 mEq/L (98-107)
[2017-06-02 06:46] LABS: HEMATOCRIT. 25.8 % (36.0-48.0); HEMOGLOBIN. 8.2 g/dL (12.0-16.0); MEAN CORPUSCULAR HEMOGLOBIN 27.5 pg (28.0-32.0); MEAN CORPUSCULAR VOLUME 86.3 fL (81.0-99.0); MEAN PLATELET VOLUME 9.8 fl (7.4-10.4); PLATELET 167 x1000/uL (130-400); RED BLOOD CELL COUNT 2.99 mill/uL (4.2-5.4); RED CELL DISTRIBUTION WIDTH 19.6 % (11.6-14.6)
[2017-06-02] MEDS: BLOOD SUGAR DIAGNOSTIC STRIP TEST SCH ×4 (06:55→22:53)
[2017-06-02 08:00] VITALS: BP 98/52
[2017-06-02] MEDS: LEVOTHYROXINE SODIUM 50MCG TABLET PO SCH (08:56)
[2017-06-02] MEDS: SULFAMETHOXAZOLE/TRIMETHOPRIM 800/160MG TABLET PO SCH ×2 (08:56→22:52)
[2017-06-02] MEDS: FAMOTIDINE 20MG/2ML VIAL IV SCH ×2 (08:56→22:51)
[2017-06-02 12:00] VITALS: BP 98/68
[2017-06-02] MEDS ORDERED: FUROSEMIDE 40MG/4ML VIAL IVP NR (14:00)
[2017-06-02 16:00] VITALS: BP 85/55
[2017-06-02 20:00] VITALS: BP 100/54
[2017-06-02 20:17] LABS: PLATELET ESTIMATE NORMAL
[2017-06-02] MEDS: ATORVASTATIN CALCIUM 10MG TABLET PO SCH (22:52)
[2017-06-03] VITALS (9 sets, daily range): BP systolic 81–98; BP diastolic 49–70
[2017-06-03] MEDS: ACETAMINOPHEN 325MG TABLET PO PRN (06:23)
[2017-06-03] MEDS: BLOOD SUGAR DIAGNOSTIC STRIP TEST SCH ×4 (07:40→20:23)
[2017-06-03] MEDS: FAMOTIDINE 20MG/2ML VIAL IV SCH ×2 (08:37→20:23)
[2017-06-03] MEDS: LEVOTHYROXINE SODIUM 50MCG TABLET PO SCH (08:37)
[2017-06-03] MEDS: SULFAMETHOXAZOLE/TRIMETHOPRIM 800/160MG TABLET PO SCH ×2 (08:37→20:24)
[2017-06-03] MEDS: ONDANSETRON HCL 4MG/2ML VIAL IV PRN ×2 (11:52→18:54)
[2017-06-03] MEDS: ATORVASTATIN CALCIUM 10MG TABLET PO SCH (20:24)
[2017-06-04] VITALS: BP 102/65
[2017-06-04 04:00] VITALS: BP 100/60
[2017-06-04] MEDS: BLOOD SUGAR DIAGNOSTIC STRIP TEST SCH ×4 (07:40→21:13)
[2017-06-04 08:00] VITALS: BP 99/63
[2017-06-04] MEDS: SULFAMETHOXAZOLE/TRIMETHOPRIM 800/160MG TABLET PO SCH ×2 (08:46→21:00)
[2017-06-04] MEDS: LEVOTHYROXINE SODIUM 50MCG TABLET PO SCH (08:46)
[2017-06-04] MEDS: FAMOTIDINE 20MG/2ML VIAL IV SCH ×2 (08:46→21:12)
[2017-06-04] MEDS: ONDANSETRON HCL 4MG/2ML VIAL IV PRN ×3 (10:19→21:18)
[2017-06-04 12:00] VITALS: BP 92/67
[2017-06-04 16:00] VITALS: BP 94/64
[2017-06-04 20:00] VITALS: BP 99/63
[2017-06-04] MEDS: ATORVASTATIN CALCIUM 10MG TABLET PO SCH (21:00)
[2017-06-05] VITALS (7 sets, daily range): BP systolic 92–107; BP diastolic 58–76
[2017-06-05] MEDS: BLOOD SUGAR DIAGNOSTIC STRIP TEST SCH ×2 (07:40→12:40)
[2017-06-05] MEDS: SULFAMETHOXAZOLE/TRIMETHOPRIM 800/160MG TABLET PO SCH (09:35)
[2017-06-05] MEDS: FAMOTIDINE 20MG/2ML VIAL IV SCH (09:35)
[2017-06-05] MEDS: LEVOTHYROXINE SODIUM 50MCG TABLET PO SCH (09:35)
[2017-06-05] MEDS: ONDANSETRON HCL 4MG/2ML VIAL IV PRN (09:37)
[2017-06-05] MEDS ORDERED: SODIUM BICARBONATE 4.2% 5 MEQ/10 ML DISP.SYRIN IV ONE (11:07)
== END 2017-06-05 20:37 | disposition home or self-care (01) | DRG 136 ==
LOC: ER 21:04 → EDBEDREQ 05-31 02:30 → EDBEDREQSVC 05-31 07:35 → ENRESERV 05-31 07:57 → CANBEDREQ 05-31 09:47 → 7WST 05-31 10:03 → UNDODISIN 06-05 18:25
PROVIDERS: ADMIT Internal Medicine; ATTEND Internal Medicine
PROC: 0W993ZZ Drainage of Right Pleural Cavity, Percutaneous Approach (ICD-10-PCS; principal; 2017-06-05)
PROC: BB4BZZZ Ultrasonography of Pleura (ICD-10-PCS; 2017-06-05)
DX: C78.2 Secondary malignant neoplasm of pleura (principal); E43 Unspecified severe protein-calorie malnutrition; J91.0 Malignant pleural effusion; J96.10 Chronic respiratory failure, unspecified whether with hypoxia or hypercapnia; C80.0 Disseminated malignant neoplasm, unspecified; K85.90 Acute pancreatitis without necrosis or infection, unspecified; C56.9 Malignant neoplasm of unspecified ovary; D72.819 Decreased white blood cell count, unspecified; N39.0 Urinary tract infection, site not specified; Z99.81 Dependence on supplemental oxygen; E03.9 Hypothyroidism, unspecified
CPT/HCPCS: 32555; 36415; 36600; 70450; 71010; 72125; 74176; 80048; 80053; 81001; 82375; 82728; 82805; 82962; 83880; 85025; 85610; 86304; 86850; 86900; 87086; 93970; 97116; 97161; 97530; 99285; A6261; C1893; J1442; J1650; J1940; J2405; J3490; J7030

== ENCOUNTER 2017-06-23 11:15 | Inpatient (IN) | payer MEDICAID ==
[2017-06-23] VITALS (38 sets, daily range): BP systolic 87–153; BP diastolic 57–98
[~2017-06-23] VITALS: Ht 162.6 cm; Wt 83.0 kg
[2017-06-23] MEDS ORDERED: SODIUM CHLORIDE 0.9% 1000ML BAG (SEPSIS BOLUS) IV ONE (11:30)
[2017-06-23 12:09] LABS: HEMATOCRIT. 35.6 % (36.0-48.0); HEMOGLOBIN. 11.7 g/dL (12.0-16.0); MEAN CORPUSCULAR HEMOGLOBIN 28.1 pg (28.0-32.0); MEAN CORPUSCULAR VOLUME 85.2 fL (81.0-99.0); MEAN PLATELET VOLUME 11.5 fl (7.4-10.4); PLATELET 53 x1000/uL (130-400); RED BLOOD CELL COUNT 4.18 mill/uL (4.2-5.4)
[2017-06-23 12:17] LABS: INR 1.3; PROTHROMBIN TIME 13.4 sec (9.4-11.6)
[2017-06-23 12:21] LABS: CHLORIDE 81 mEq/L (98-107)
[2017-06-23 12:22] LABS: BG BASE EXCESS 18.6 mmol/L (-2.0-2.0); BG CARBOXYHEMOGLOBIN 0.2 % (0.5-1.5); BG DEOXYHEMOGLOBIN 0.8 % (0.0-5.0); BG HCO3 ACT 44.7 mmol/L (22.0-26.0); BG METHEMOGLOBIN 0.1 % (0.0-1.5); BG OXYGEN SATURATION 99.2 % (92.0-98.5); BG OXYHEMOGLOBIN 98.9 % (94.0-97.0); BG PCO2 57.3 mmHg (35.0-45.0); BG PO2 210.5 mmHg (75.0-100.0); BG SAMPLE SITE RIGHT RADIAL; BG TOTAL HEMOGLOBIN 13.1 g/dL (12.0-18.0); BG VENT MODE NASAL CANNULA
[2017-06-23 12:28] LABS: TROPONIN I < 0.02 ng/mL (0.00-0.04)
[2017-06-23] MEDS ORDERED: NOREPINEPHRINE 4 MG in DEXT 5% WATER 246 ML IV PRN ×2 (12:30→16:00)
[2017-06-23] MEDS ORDERED: NOREPINEPHRINE 4 MG in DEXT 5% WATER 246 ML IV ONE (12:30)
[2017-06-23 12:31] LABS: CLARITY URINE CLEAR (CLEAR); COLOR URINE YELLOW (YELLOW); GLUCOSE URINE NEGATIVE (NEGATIVE); KETONES URINE NEGATIVE (NEGATIVE); LEUKOCYTE ESTERASE URINE TRACE (NEGATIVE); NITRITE URINE NEGATIVE (NEGATIVE); OCCULT BLOOD URINE NEGATIVE (NEGATIVE); PH URINE 5.5 (4.5-8.0); PROTEIN URINE NEGATIVE (NEGATIVE); UROBILINOGEN URINE 0.2 E.U./dL (0.2-1.0)
[2017-06-23 12:32] LABS: CARBON DIOXIDE 41 mEq/L (21-32)
[2017-06-23 12:34] LABS: HCG SCREEN NEGATIVE
[2017-06-23] MEDS ORDERED: FENTANYL CITRATE/PF 50MCG/ML 2ML VIAL IV ONE (12:45)
[2017-06-23] MEDS ORDERED: ONDANSETRON HCL 4MG/2ML VIAL IV ONE (12:45)
[2017-06-23 13:45] LABS: PLATELET ESTIMATE DECREASED
[2017-06-23] MEDS ORDERED: IPRATROPIUM/ALBUTEROL 0.5-3(2.5)MG/3ML NEB HHN PRN (14:45)
[2017-06-23] MEDS: ONDANSETRON HCL 4MG/2ML VIAL IV PRN ×2 (14:51→20:37)
[2017-06-23] MEDS: IPRATROPIUM/ALBUTEROL 0.5-3(2.5)MG/3ML NEB HHN SCH ×2 (15:46→20:13)
[2017-06-23] MEDS ORDERED: DEXTROSE 50% WATER 50ML SYRINGE IV PRN (18:15)
[2017-06-23] MEDS: INSULIN LISPRO 100 UNITS/ML SUBCUT SCH ×2 (18:20→21:08)
[2017-06-23] MEDS ORDERED: MORPHINE SULFATE 2 MG/ML CPJ (NOT FOR IM USE) IV PRN (18:30)
[2017-06-23] MEDS: SODIUM CHLORIDE 0.9% 1,000 ML IV SCH (18:39)
[2017-06-23] MEDS: BLOOD SUGAR DIAGNOSTIC STRIP TEST SCH (21:08)
[2017-06-24] VITALS (92 sets, daily range): BP systolic 57–154; BP diastolic 24–90
[2017-06-24] MEDS: ONDANSETRON HCL 4MG/2ML VIAL IV PRN (01:04)
[2017-06-24] MEDS: NOREPINEPHRINE 8 MG in DEXT 5% WATER 242 ML IV PRN ×2 (01:05→14:56)
[2017-06-24] MEDS: IPRATROPIUM/ALBUTEROL 0.5-3(2.5)MG/3ML NEB HHN SCH ×4 (02:09→20:08)
[2017-06-24] MEDS: SODIUM CHLORIDE 0.9% 1,000 ML IV SCH ×2 (04:27→14:55)
[2017-06-24 05:50] LABS: BASOPHILS % 0.1 % (0.0-2.0); EOSINOPHILS % 0.4 % (0.0-5.0); HEMATOCRIT. 33.4 % (36.0-48.0); LYMPHOCYTES % 14.2 % (20.0-50.0); MEAN CORPUSCULAR HEMOGLOBIN 28.1 pg (28.0-32.0); MEAN CORPUSCULAR VOLUME 85.5 fL (81.0-99.0); MEAN PLATELET VOLUME 11.2 fl (7.4-10.4); MONOCYTES % 9.8 % (2.0-8.0); NEUTROPHILS % 75.5 % (40.0-76.0); PLATELET 53 x1000/uL (130-400); RED BLOOD CELL COUNT 3.91 mill/uL (4.2-5.4); RED CELL DISTRIBUTION WIDTH 16.1 % (11.6-14.6)
[2017-06-24] MEDS: BLOOD SUGAR DIAGNOSTIC STRIP TEST SCH ×4 (07:34→21:35)
[2017-06-24] MEDS: INSULIN LISPRO 100 UNITS/ML SUBCUT SCH ×4 (07:34→21:39)
[2017-06-24] MEDS ORDERED: FUROSEMIDE 20MG/2ML VIAL IVP NR (08:11)
[2017-06-24] MEDS: PANTOPRAZOLE SODIUM 40 MG/VIAL IV SCH (08:34)
[2017-06-24 08:41] LABS: BG BASE EXCESS 11.1 mmol/L (-2.0-2.0); BG CARBOXYHEMOGLOBIN 0.1 % (0.5-1.5); BG DEOXYHEMOGLOBIN 1.4 % (0.0-5.0); BG FRACTION INSPIRED OXYGEN 28; BG HCO3 ACT 36.3 mmol/L (22.0-26.0); BG METHEMOGLOBIN 0.3 % (0.0-1.5); BG OXYGEN SATURATION 98.6 % (92.0-98.5); BG OXYHEMOGLOBIN 98.2 % (94.0-97.0); BG PCO2 50.5 mmHg (35.0-45.0); BG PH 7.474 (7.350-7.450); BG PO2 131.1 mmHg (75.0-100.0); BG SAMPLE SITE RIGHT RADIAL; BG TOTAL HEMOGLOBIN 11.4 g/dL (12.0-18.0); BG VENT MODE NASAL CANNULA
[2017-06-24] MEDS ORDERED: POTASSIUM CHLORIDE INJ 40 MEQ in DEXT 5% WATER 250 ML IV NR (10:00)
[2017-06-24] MEDS: LEVOTHYROXINE SODIUM 50MCG TABLET PO SCH ×2 (16:33→16:54)
[2017-06-24] MEDS: AZTREONAM 2 GM in DEXT 5% WATER 100 ML IV SCH (17:40)
[2017-06-24] MEDS ORDERED: VANCOMYCIN 1250MG in DEXTROSE 5% WATER 250ML IV NR (20:00)
[2017-06-24] MEDS: ATORVASTATIN CALCIUM 10MG TABLET PO SCH (21:08)
[2017-06-25] VITALS (94 sets, daily range): BP systolic 63–155; BP diastolic 26–90
[2017-06-25] MEDS: SODIUM CHLORIDE 0.9% 1,000 ML IV SCH ×3 (00:52→18:53)
[2017-06-25] MEDS: IPRATROPIUM/ALBUTEROL 0.5-3(2.5)MG/3ML NEB HHN SCH ×4 (01:51→21:05)
[2017-06-25] MEDS: AZTREONAM 2 GM in DEXT 5% WATER 100 ML IV SCH ×2 (05:22→18:01)
[2017-06-25 05:47] LABS: BASOPHILS % 0.2 % (0.0-2.0); EOSINOPHILS % 0.3 % (0.0-5.0); HEMATOCRIT. 29.5 % (36.0-48.0); HEMOGLOBIN. 9.8 g/dL (12.0-16.0); LYMPHOCYTES % 11.6 % (20.0-50.0); MEAN CORPUSCULAR HEMOGLOBIN 28.6 pg (28.0-32.0); MEAN CORPUSCULAR VOLUME 86.3 fL (81.0-99.0); MEAN PLATELET VOLUME 10.9 fl (7.4-10.4); MONOCYTES % 8.2 % (2.0-8.0); NEUTROPHILS % 79.7 % (40.0-76.0); RED BLOOD CELL COUNT 3.41 mill/uL (4.2-5.4); RED CELL DISTRIBUTION WIDTH 15.7 % (11.6-14.6)
[2017-06-25 05:51] LABS: CARBON DIOXIDE 33 mEq/L (21-32); CHLORIDE 91 mEq/L (98-107); TROPONIN I < 0.02 ng/mL (0.00-0.04)
[2017-06-25] MEDS: NOREPINEPHRINE 8 MG in DEXT 5% WATER 242 ML IV PRN (05:55)
[2017-06-25 05:58] LABS: PLATELET 41 x1000/uL (130-400)
[2017-06-25] MEDS: BLOOD SUGAR DIAGNOSTIC STRIP TEST SCH ×4 (06:39→21:16)
[2017-06-25] MEDS: INSULIN LISPRO 100 UNITS/ML SUBCUT SCH ×4 (06:39→21:00)
[2017-06-25] MEDS: PANTOPRAZOLE SODIUM 40 MG/VIAL IV SCH (08:23)
[2017-06-25] MEDS: VANCOMYCIN 750 MG PREMIX 150 ML IV SCH ×2 (08:23→20:40)
[2017-06-25] MEDS: LEVOTHYROXINE SODIUM 50MCG TABLET PO SCH (08:27)
[2017-06-25] MEDS ORDERED: NOREPINEPHRINE 8 MG in DEXT 5% WATER 242 ML IV PRN (10:13)
[2017-06-25] MEDS ORDERED: POTASSIUM CHLORIDE 20MEQ/PACKET PO SCH (10:15)
[2017-06-25] MEDS ORDERED: KCL 20MEQ/100ML PREMIX 100 ML IV SCH (13:00)
[2017-06-25] MEDS: ATORVASTATIN CALCIUM 10MG TABLET PO SCH (20:40)
[2017-06-26] VITALS (95 sets, daily range): BP systolic 64–144; BP diastolic 38–84
[2017-06-26] MEDS: IPRATROPIUM/ALBUTEROL 0.5-3(2.5)MG/3ML NEB HHN SCH ×4 (02:54→20:14)
[2017-06-26 04:56] LABS: BASOPHILS % 0.2 % (0.0-2.0); EOSINOPHILS % 0.1 % (0.0-5.0); HEMATOCRIT. 29.4 % (36.0-48.0); HEMOGLOBIN. 9.5 g/dL (12.0-16.0); LYMPHOCYTES % 9.6 % (20.0-50.0); MEAN CORPUSCULAR HEMOGLOBIN 27.9 pg (28.0-32.0); MEAN CORPUSCULAR VOLUME 86.5 fL (81.0-99.0); MEAN PLATELET VOLUME 11.9 fl (7.4-10.4); MONOCYTES % 8.9 % (2.0-8.0); NEUTROPHILS % 81.2 % (40.0-76.0); RED CELL DISTRIBUTION WIDTH 15.7 % (11.6-14.6)
[2017-06-26 05:06] LABS: CARBON DIOXIDE 34 mEq/L (21-32); CHLORIDE 92 mEq/L (98-107)
[2017-06-26] MEDS: AZTREONAM 2 GM in DEXT 5% WATER 100 ML IV SCH ×2 (05:29→17:24)
[2017-06-26] MEDS: BLOOD SUGAR DIAGNOSTIC STRIP TEST SCH ×3 (06:09→21:40)
[2017-06-26] MEDS: VANCOMYCIN 750 MG PREMIX 150 ML IV SCH (08:00)
[2017-06-26] MEDS: INSULIN LISPRO 100 UNITS/ML SUBCUT SCH ×4 (08:20→21:00)
[2017-06-26] MEDS: PANTOPRAZOLE SODIUM 40 MG/VIAL IV SCH (09:05)
[2017-06-26] MEDS: LEVOTHYROXINE SODIUM 50MCG TABLET PO SCH (09:11)
[2017-06-26 13:44] LABS: PLATELET 41 x1000/uL (130-400)
[2017-06-26] MEDS: SODIUM CHLORIDE 0.9% 1,000 ML IV SCH (17:24)
[2017-06-26] MEDS ORDERED: FUROSEMIDE 20MG/2ML VIAL IVP NR (18:45)
[2017-06-26] MEDS: ATORVASTATIN CALCIUM 10MG TABLET PO SCH (20:18)
[2017-06-27] VITALS (52 sets, daily range): BP systolic 85–124; BP diastolic 49–94
[2017-06-27] MEDS: IPRATROPIUM/ALBUTEROL 0.5-3(2.5)MG/3ML NEB HHN SCH ×4 (00:35→20:21)
[2017-06-27] MEDS: NOREPINEPHRINE 8 MG in DEXT 5% WATER 242 ML IV PRN (01:23)
[2017-06-27] MEDS: AZTREONAM 2 GM in DEXT 5% WATER 100 ML IV SCH ×2 (05:29→18:09)
[2017-06-27] MEDS: SODIUM CHLORIDE 0.9% 1,000 ML IV SCH ×2 (05:30→18:10)
[2017-06-27 05:41] LABS: BASOPHILS % 0.3 % (0.0-2.0); EOSINOPHILS % 0.1 % (0.0-5.0); HEMATOCRIT. 33.2 % (36.0-48.0); HEMOGLOBIN. 10.7 g/dL (12.0-16.0); LYMPHOCYTES % 8.8 % (20.0-50.0); MEAN CORPUSCULAR HEMOGLOBIN 27.9 pg (28.0-32.0); MEAN CORPUSCULAR VOLUME 86.9 fL (81.0-99.0); MEAN PLATELET VOLUME 11.3 fl (7.4-10.4); MONOCYTES % 6.7 % (2.0-8.0); NEUTROPHILS % 84.1 % (40.0-76.0); PLATELET 54 x1000/uL (130-400); RED BLOOD CELL COUNT 3.82 mill/uL (4.2-5.4); RED CELL DISTRIBUTION WIDTH 16.1 % (11.6-14.6)
[2017-06-27 05:57] LABS: CARBON DIOXIDE 26 mEq/L (21-32); CHLORIDE 95 mEq/L (98-107)
[2017-06-27] MEDS: BLOOD SUGAR DIAGNOSTIC STRIP TEST SCH ×4 (06:03→21:00)
[2017-06-27] MEDS: INSULIN LISPRO 100 UNITS/ML SUBCUT SCH ×4 (06:03→21:00)
[2017-06-27] MEDS: LEVOTHYROXINE SODIUM 50MCG TABLET PO SCH (07:50)
[2017-06-27] MEDS: PANTOPRAZOLE SODIUM 40 MG/VIAL IV SCH (09:00)
[2017-06-27] MEDS: VANCOMYCIN 1 G PREMIX 200 ML IV SCH (12:34)
[2017-06-27] MEDS: ATORVASTATIN CALCIUM 10MG TABLET PO SCH (20:53)
[2017-06-28] VITALS (91 sets, daily range): BP systolic 80–135; BP diastolic 34–82
[2017-06-28] MEDS: IPRATROPIUM/ALBUTEROL 0.5-3(2.5)MG/3ML NEB HHN SCH ×4 (01:58→20:05)
[2017-06-28] MEDS: AZTREONAM 2 GM in DEXT 5% WATER 100 ML IV SCH ×2 (05:56→17:33)
[2017-06-28] MEDS: NOREPINEPHRINE 8 MG in DEXT 5% WATER 242 ML IV PRN (06:00)
[2017-06-28 06:48] LABS: HEMATOCRIT. 29.1 % (36.0-48.0); HEMOGLOBIN. 9.4 g/dL (12.0-16.0); MEAN CORPUSCULAR HEMOGLOBIN 27.8 pg (28.0-32.0); MEAN PLATELET VOLUME 11.2 fl (7.4-10.4); PLATELET 74 x1000/uL (130-400); RED BLOOD CELL COUNT 3.38 mill/uL (4.2-5.4); RED CELL DISTRIBUTION WIDTH 15.9 % (11.6-14.6)
[2017-06-28 06:59] LABS: CARBON DIOXIDE 31 mEq/L (21-32); CHLORIDE 97 mEq/L (98-107)
[2017-06-28] MEDS: LEVOTHYROXINE SODIUM 50MCG TABLET PO SCH (07:50)
[2017-06-28] MEDS: BLOOD SUGAR DIAGNOSTIC STRIP TEST SCH ×4 (08:00→20:44)
[2017-06-28] MEDS: INSULIN LISPRO 100 UNITS/ML SUBCUT SCH ×4 (08:20→20:44)
[2017-06-28] MEDS: PANTOPRAZOLE SODIUM 40 MG/VIAL IV SCH (08:49)
[2017-06-28] MEDS: SODIUM CHLORIDE 0.9% 1,000 ML IV SCH ×2 (08:50→23:39)
[2017-06-28 10:39] LABS: PLATELET ESTIMATE DECREASED
[2017-06-28] MEDS: VANCOMYCIN 1 G PREMIX 200 ML IV SCH (11:13)
[2017-06-28] MEDS: ATORVASTATIN CALCIUM 10MG TABLET PO SCH (20:40)
[2017-06-28] MEDS ORDERED: FUROSEMIDE 20MG/2ML VIAL IVP SCH (22:50)
[2017-06-29] VITALS (94 sets, daily range): BP systolic 80–116; BP diastolic 31–80
[2017-06-29] MEDS: NOREPINEPHRINE 8 MG in DEXT 5% WATER 242 ML IV PRN (01:12)
[2017-06-29] MEDS: IPRATROPIUM/ALBUTEROL 0.5-3(2.5)MG/3ML NEB HHN SCH ×3 (01:44→14:01)
[2017-06-29] MEDS: AZTREONAM 2 GM in DEXT 5% WATER 100 ML IV SCH ×2 (05:27→17:45)
[2017-06-29 05:46] LABS: BASOPHILS % 0.3 % (0.0-2.0); EOSINOPHILS % 0.1 % (0.0-5.0); HEMATOCRIT. 27.7 % (36.0-48.0); HEMOGLOBIN. 8.9 g/dL (12.0-16.0); LYMPHOCYTES % 7.5 % (20.0-50.0); MEAN CORPUSCULAR HEMOGLOBIN 27.9 pg (28.0-32.0); MEAN CORPUSCULAR VOLUME 86.6 fL (81.0-99.0); MEAN PLATELET VOLUME 11.3 fl (7.4-10.4); MONOCYTES % 6.9 % (2.0-8.0); NEUTROPHILS % 85.2 % (40.0-76.0); PLATELET 84 x1000/uL (130-400); RED BLOOD CELL COUNT 3.19 mill/uL (4.2-5.4); RED CELL DISTRIBUTION WIDTH 15.8 % (11.6-14.6)
[2017-06-29 06:31] LABS: CHLORIDE 97 mEq/L (98-107)
[2017-06-29 06:41] LABS: CARBON DIOXIDE 22 mEq/L (21-32)
[2017-06-29] MEDS: BLOOD SUGAR DIAGNOSTIC STRIP TEST SCH ×4 (07:50→20:56)
[2017-06-29] MEDS: INSULIN LISPRO 100 UNITS/ML SUBCUT SCH ×3 (07:53→20:56)
[2017-06-29] MEDS: PANTOPRAZOLE SODIUM 40 MG/VIAL IV SCH (08:45)
[2017-06-29] MEDS: LEVOTHYROXINE SODIUM 50MCG TABLET PO SCH (08:45)
[2017-06-29] MEDS: ONDANSETRON HCL 4MG/2ML VIAL IV PRN (11:07)
[2017-06-29] MEDS: SODIUM CHLORIDE 0.9% 1,000 ML IV SCH (11:30)
[2017-06-29] MEDS: MORPHINE SULFATE 2 MG/ML CPJ (NOT FOR IM USE) IV PRN (11:31)
[2017-06-29] MEDS: VANCOMYCIN 1 G PREMIX 200 ML IV SCH (12:32)
[2017-06-29] MEDS: FUROSEMIDE 20MG/2ML VIAL IVP SCH (13:53)
[2017-06-29] MEDS: POTASSIUM CHLORIDE 10MEQ TABLET SR PO SCH (13:53)
[2017-06-29] MEDS ORDERED: DEXT 5% IV NR (14:00)
[2017-06-29] MEDS ORDERED: CALCIUM CHLORIDE IV NR (14:00)
[2017-06-29] MEDS ORDERED: WATER IV NR (14:00)
[2017-06-29] MEDS: ATORVASTATIN CALCIUM 10MG TABLET PO SCH (20:49)
[2017-06-30] VITALS (94 sets, daily range): BP systolic 78–158; BP diastolic 38–104
[2017-06-30] MEDS: SODIUM CHLORIDE 0.9% 1,000 ML IV SCH ×2 (00:53→13:05)
[2017-06-30] MEDS: IPRATROPIUM/ALBUTEROL 0.5-3(2.5)MG/3ML NEB HHN SCH ×4 (02:10→20:14)
[2017-06-30] MEDS: AZTREONAM 2 GM in DEXT 5% WATER 100 ML IV SCH ×2 (05:55→18:18)
[2017-06-30] MEDS: NOREPINEPHRINE 8 MG in DEXT 5% WATER 242 ML IV PRN ×2 (06:22→23:59)
[2017-06-30 06:25] LABS: BASOPHILS % 0.2 % (0.0-2.0); HEMOGLOBIN. 8.7 g/dL (12.0-16.0); LYMPHOCYTES % 8.6 % (20.0-50.0); MEAN CORPUSCULAR HEMOGLOBIN 27.9 pg (28.0-32.0); MEAN CORPUSCULAR VOLUME 86.9 fL (81.0-99.0); MEAN PLATELET VOLUME 11.5 fl (7.4-10.4); MONOCYTES % 7.9 % (2.0-8.0); NEUTROPHILS % 83.3 % (40.0-76.0); PLATELET 113 x1000/uL (130-400); RED BLOOD CELL COUNT 3.11 mill/uL (4.2-5.4); RED CELL DISTRIBUTION WIDTH 16.4 % (11.6-14.6)
[2017-06-30 07:18] LABS: CARBON DIOXIDE 25 mEq/L (21-32); CHLORIDE 97 mEq/L (98-107)
[2017-06-30] MEDS: LEVOTHYROXINE SODIUM 50MCG TABLET PO SCH ×2 (07:50→08:47)
[2017-06-30] MEDS: BLOOD SUGAR DIAGNOSTIC STRIP TEST SCH ×4 (07:50→20:36)
[2017-06-30] MEDS: INSULIN LISPRO 100 UNITS/ML SUBCUT SCH ×4 (08:07→20:37)
[2017-06-30] MEDS: FUROSEMIDE 20MG/2ML VIAL IVP SCH (08:47)
[2017-06-30] MEDS: POTASSIUM CHLORIDE 10MEQ TABLET SR PO SCH ×2 (08:47→09:00)
[2017-06-30] MEDS: PANTOPRAZOLE SODIUM 40 MG/VIAL IV SCH (08:47)
[2017-06-30] MEDS: ONDANSETRON HCL 4MG/2ML VIAL IV PRN (08:51)
[2017-06-30] MEDS ORDERED: VANCOMYCIN 750 MG PREMIX 150 ML IV SCH (13:00)
[2017-06-30] MEDS: ATORVASTATIN CALCIUM 10MG TABLET PO SCH (20:24)
[2017-06-30] MEDS: MORPHINE SULFATE 2 MG/ML CPJ (NOT FOR IM USE) IV PRN (22:37)
[2017-06-30] MEDS ORDERED: SODIUM CHLORIDE 0.9% 500 ML IV NR (23:15)
[2017-07-01] VITALS (112 sets, daily range): BP systolic 55–134; BP diastolic 17–88
[2017-07-01] MEDS: IPRATROPIUM/ALBUTEROL 0.5-3(2.5)MG/3ML NEB HHN SCH ×4 (01:33→20:17)
[2017-07-01] MEDS: AZTREONAM 2 GM in DEXT 5% WATER 100 ML IV SCH ×2 (05:44→18:41)
[2017-07-01 05:52] LABS: BASOPHILS % 0.4 % (0.0-2.0); EOSINOPHILS % 0.1 % (0.0-5.0); HEMATOCRIT. 28.8 % (36.0-48.0); HEMOGLOBIN. 9.1 g/dL (12.0-16.0); LYMPHOCYTES % 8.7 % (20.0-50.0); MEAN CORPUSCULAR HEMOGLOBIN 27.9 pg (28.0-32.0); MEAN CORPUSCULAR VOLUME 88.4 fL (81.0-99.0); MEAN PLATELET VOLUME 11.3 fl (7.4-10.4); MONOCYTES % 5.6 % (2.0-8.0); NEUTROPHILS % 85.2 % (40.0-76.0); PLATELET 148 x1000/uL (130-400); RED BLOOD CELL COUNT 3.26 mill/uL (4.2-5.4); RED CELL DISTRIBUTION WIDTH 16.5 % (11.6-14.6)
[2017-07-01] MEDS: SODIUM CHLORIDE 0.9% 1,000 ML IV SCH ×2 (05:52→17:17)
[2017-07-01] MEDS: LEVOTHYROXINE SODIUM 50MCG TABLET PO SCH ×2 (07:50→08:30)
[2017-07-01] MEDS: INSULIN LISPRO 100 UNITS/ML SUBCUT SCH ×4 (08:20→21:00)
[2017-07-01] MEDS: BLOOD SUGAR DIAGNOSTIC STRIP TEST SCH ×4 (08:30→21:00)
[2017-07-01] MEDS: PANTOPRAZOLE SODIUM 40 MG/VIAL IV SCH (08:31)
[2017-07-01] MEDS: POTASSIUM CHLORIDE 10MEQ TABLET SR PO SCH ×2 (08:31→08:44)
[2017-07-01] MEDS: ONDANSETRON HCL 4MG/2ML VIAL IV PRN (09:15)
[2017-07-01] MEDS: NOREPINEPHRINE 32 MG in DEXT 5% WATER 468 ML IV PRN (10:25)
[2017-07-01] MEDS: PHENYLEPHRINE 40 MG in DEXT 5% WATER 246 ML IV PRN ×4 (11:37→22:44)
[2017-07-01] MEDS: MORPHINE SULFATE 2 MG/ML CPJ (NOT FOR IM USE) IV PRN ×2 (15:07→21:44)
[2017-07-01] MEDS: VASOPRESSIN 10 UNIT in SODIUM CHLORIDE 0.9% 99.5 ML IV PRN ×3 (17:16→23:52)
[2017-07-01] MEDS: ATORVASTATIN CALCIUM 10MG TABLET PO SCH ×2 (21:43→21:55)
[2017-07-02] VITALS (25 sets, daily range): BP systolic 40–128; BP diastolic 25–72
[2017-07-02] MEDS: IPRATROPIUM/ALBUTEROL 0.5-3(2.5)MG/3ML NEB HHN SCH (02:12)
[2017-07-02] MEDS: NOREPINEPHRINE 32 MG in DEXT 5% WATER 468 ML IV PRN (02:58)
[2017-07-02] MEDS: PHENYLEPHRINE 40 MG in DEXT 5% WATER 246 ML IV PRN (03:25)
[2017-07-02] MEDS: VASOPRESSIN 10 UNIT in SODIUM CHLORIDE 0.9% 99.5 ML IV PRN (04:08)
[2017-07-02] MEDS: AZTREONAM 2 GM in DEXT 5% WATER 100 ML IV SCH (05:13)
[2017-07-02] MEDS: MORPHINE SULFATE 2 MG/ML CPJ (NOT FOR IM USE) IV PRN (05:13)
== END 2017-07-02 05:22 | disposition expired | DRG 720 ==
LOC: ER 11:15 → ENRESERV 12:25 → CVICU 12:36 → EDBEDREQ 12:38 → EDBEDREQTM 12:38
PROVIDERS: ADMIT Internal Medicine; ATTEND Internal Medicine
PROC: 05HN33Z Insertion of Infusion Device into Left Internal Jugular Vein, Percutaneous Approach (ICD-10-PCS; principal; 2017-06-23)
PROC: B544ZZA Ultrasonography of Left Jugular Veins, Guidance (ICD-10-PCS; 2017-06-23)
DX: A41.9 Sepsis, unspecified organism (principal); J96.92 Respiratory failure, unspecified with hypercapnia; N17.0 Acute kidney failure with tubular necrosis; R65.21 Severe sepsis with septic shock; C80.0 Disseminated malignant neoplasm, unspecified; E43 Unspecified severe protein-calorie malnutrition; R18.8 Other ascites; J90 Pleural effusion, not elsewhere classified; D69.6 Thrombocytopenia, unspecified; C56.9 Malignant neoplasm of unspecified ovary; D64.9 Anemia, unspecified; K85.90 Acute pancreatitis without necrosis or infection, unspecified; Z79.01 Long term (current) use of anticoagulants; R74.0 Nonspecific elevation of levels of transaminase and lactic acid dehydrogenase [LDH]; K56.7 Ileus, unspecified; D72.819 Decreased white blood cell count, unspecified; E87.6 Hypokalemia; E03.9 Hypothyroidism, unspecified; E11.9 Type 2 diabetes mellitus without complications; E78.5 Hyperlipidemia, unspecified; Z66 Do not resuscitate; Z86.711 Personal history of pulmonary embolism; Z86.718 Personal history of other venous thrombosis and embolism; Z88.1 Allergy status to other antibiotic agents; Z92.21 Personal history of antineoplastic chemotherapy; Z99.81 Dependence on supplemental oxygen; I12.9 Hypertensive chronic kidney disease with stage 1 through stage 4 chronic kidney disease, or unspecified chronic kidney disease; N18.3 Chronic kidney disease, stage 3 (moderate)
CPT/HCPCS: 36415; 36569; 36600; 71010; 73560; 74000; 76937; 80048; 80053; 80202; 81001; 81025; 82375; 82550; 82553; 82652; 82805; 82962; 83605; 83690; 83880; 84145; 84484; 84703; 85025; 85610; 86304; 86850; 86900; 87040; 87086; 93005; 93306; 94640; 94664; 96374; 99291; A6261; C1725; C9113; J1815; J1940; J2270; J2370; J2405; J3370; J3480; J3490; J7030; J7040; J7050; J7060; J7620; A4315